=== PATIENT | male | born 1980 | race African-American/Black ===

== ENCOUNTER 2016-10-15 01:41 | Emergency (ER) | payer OTHER ==
[2016-10-15 01:48] VITALS: TEMP 97.5
[2016-10-15] MEDS ORDERED: CLOTRIMAZOLE 1% 15 GM CRTUBE TP ONE (04:38)
--- NOTE | 2016-10-15 04:38 | EDPHY ---
H & P Stated Complaint: blisters and pain to bilat feet x3 weeks Time Seen by Provider: 10/15/16 04:33 HPI/ROS: HPI The patient presents with foot pain and blisters to both of his feet for the last several weeks. He is homeless and has been walking a lot and feels that this is caused his blisters. The blisters and pain have been constant, are achy in nature, are not associated with any fevers or chills.. REVIEW OF SYSTEMS Constitutional: No fever, no chills. Eyes: No discharge. ENT: No sore throat. Cardiovascular: No chest pain, no palpitations. Respiratory: No cough, no shortness of breath. Gastrointestinal: No abdominal pain, no vomiting. Genitourinary: No hematuria. Musculoskeletal: No back pain. Skin: No rashes. Neurological: No headache. PMHx: No diabetes, no hypertension Soc Hx: Homeless PHYSICAL General Appearance: Alert, no distress Eyes: Pupils equal and round no pallor or injection ENT, Mouth: Mucous membranes moist Respiratory: Breathing comfortably Neurological: A&O, moves all extremities Skin: Warm and dry, no rashes Musculoskeletal: Neck is supple non tender Extremities: Both feet with calluses and several bullae with no surrounding erythema, edema, warmth symmetrical, full range of motion Psychiatric: Patient is oriented X 3, there is no agitation Source: Patient Exam Limitations: No limitations - Personal History Current Tetanus Diphtheria and Acellular Pertussis (TDAP): Yes Tetanus Vaccine Date: 2015 - Medical/Surgical History Hx Asthma: Yes Hx Chronic Respiratory Disease: No Hx Diabetes: No Hx Cardiac Disease: No Hx Renal Disease: No Hx Cirrhosis: No Hx Alcoholism: No Hx HIV/AIDS: No Hx Splenectomy or Spleen Trauma: No Other PMH: denies - Social History Smoking Status: Current every day smoker Constitutional: Initial Vital Signs Temperature (C) 36.4 C 10/15/16 01:45 Heart Rate 58 L 10/15/16 01:45 Respiratory Rate 18 10/15/16 01:45 Blood Pressure 126/70 H 10/15/16 01:45 O2 Sat (%) 97 10/15/16 01:45 O2 Delivery Mode Room Air Allergies/Adverse Reactions: aspirin Allergy (Verified 10/15/16 01:45) Home Medications: Medication Instructions Recorded NK [No Known Home Meds] 10/15/16 Medical Decision Making Differential Diagnosis: This is a 36-year-old homeless male who is presenting with 3 weeks of foot blisters and pain. Differential diagnosis includes athletes foot, blisters from ambulation, less likely cellulitis. Will discharge with clotrimazole and clean socks. - Data Points Medications Given: Discontinued Medications Clotrimazole (Lotrimin 1%) 1 gita TP EDNOW ONE Stop: 10/15/16 04:39 Last Admin: 10/15/16 05:18 Dose: 1 gita Departure - Departure Disposition: Home, Routine, Self-Care Clinical Impression: Blister of foot Condition: Good Instructions: Athlete's Foot (ED) Referrals: [facility],. [Clinic] - As per Instructions
[2016-10-15 05:27] VITALS: BP 122/82; PULSE 62; RESP 16; O2SAT 94
== END 2016-10-15 05:27 | disposition home or self-care (01) ==
DX: R23.8 Other skin changes (principal); J45.909 Unspecified asthma, uncomplicated; F17.200 Nicotine dependence, unspecified, uncomplicated